=== PATIENT | male | born 1955 | race Hispanic/Latino ===

== ENCOUNTER 2022-09-26 08:24 | Outpatient (CLI) | payer MEDICARE, BC | END 2022-09-26 08:25 | disposition home or self-care (01) | LOC: CSHWCC 08:24 | PROVIDERS: ATTEND Nurse Practitioner Family | DX: E11.621 Type 2 diabetes mellitus with foot ulcer (principal); L97.529 Non-pressure chronic ulcer of other part of left foot with unspecified severity ==

== ENCOUNTER 2022-10-10 08:05 | Outpatient (CLI) | payer MEDICARE, BC | END 2022-10-10 08:06 | disposition home or self-care (01) | LOC: CSHWCC 08:05 | PROVIDERS: ATTEND Nurse Practitioner Family | DX: E11.621 Type 2 diabetes mellitus with foot ulcer (principal); L97.529 Non-pressure chronic ulcer of other part of left foot with unspecified severity ==

== ENCOUNTER 2022-10-24 08:02 | Outpatient (CLI) | payer MEDICARE, BC | END 2022-10-24 08:03 | disposition home or self-care (01) | LOC: CSHWCC 08:02 | PROVIDERS: ATTEND Nurse Practitioner Family | DX: E11.621 Type 2 diabetes mellitus with foot ulcer (principal); L97.529 Non-pressure chronic ulcer of other part of left foot with unspecified severity ==

== ENCOUNTER 2022-12-13 08:07 | Outpatient (CLI) | payer MEDICARE, BC | END 2022-12-13 08:08 | disposition home or self-care (01) | LOC: CSHWCC 08:07 | PROVIDERS: ATTEND Nurse Practitioner Family | DX: E11.621 Type 2 diabetes mellitus with foot ulcer (principal); L97.529 Non-pressure chronic ulcer of other part of left foot with unspecified severity | CPT/HCPCS: 11042 ==

== ENCOUNTER 2022-12-21 08:16 | Outpatient (CLI) | payer MEDICARE, BC | END 2022-12-21 08:17 | disposition home or self-care (01) | LOC: CSHWCC 08:16 | PROVIDERS: ATTEND Nurse Practitioner Family | DX: E11.621 Type 2 diabetes mellitus with foot ulcer (principal); L97.529 Non-pressure chronic ulcer of other part of left foot with unspecified severity | CPT/HCPCS: 82962; 97139; G0277; 36416 ==

== ENCOUNTER 2022-12-22 09:58 | Outpatient (CLI) | payer MEDICARE, BC | END 2022-12-22 09:59 | disposition home or self-care (01) | LOC: CSHWCC 09:58 | PROVIDERS: ATTEND Nurse Practitioner Family | DX: E11.621 Type 2 diabetes mellitus with foot ulcer (principal); L97.529 Non-pressure chronic ulcer of other part of left foot with unspecified severity ==

== ENCOUNTER 2022-12-26 08:15 | Outpatient (CLI) | payer MEDICARE, BC | END 2022-12-26 08:16 | disposition home or self-care (01) | LOC: CSHWCC 08:15 | PROVIDERS: ATTEND Nurse Practitioner Family | DX: E11.621 Type 2 diabetes mellitus with foot ulcer (principal); L97.529 Non-pressure chronic ulcer of other part of left foot with unspecified severity; I70.292 Other atherosclerosis of native arteries of extremities, left leg | CPT/HCPCS: 82962; 97139; G0277; 36416 ==

== ENCOUNTER 2022-12-27 08:03 | Outpatient (CLI) | payer MEDICARE, BC | END 2022-12-27 08:04 | disposition home or self-care (01) | LOC: CSHWCC 08:03 | PROVIDERS: ATTEND Nurse Practitioner Family | DX: E11.621 Type 2 diabetes mellitus with foot ulcer (principal); L97.529 Non-pressure chronic ulcer of other part of left foot with unspecified severity | CPT/HCPCS: 11042; 87070; 87077; 87186; 87205; 97139; G0463; 99212 ==